=== PATIENT | female | born 2000 | race Caucasian/White ===

== ENCOUNTER → 2019-10-13 09:06 | Outpatient (CLI) | payer BC, MEDICAID ==
[~2019-10-13] VITALS: Ht 162.6 cm; Wt 79.5 kg
[~2019-10-13 09:06] MED LIST: CELEXA10 MG PO; HYDROCODON-ACE1 EAC2 PO; PRENAVITE1 TAB PO
[2019-10-13 09:14] VITALS: Ht 162.6 cm; Wt 79.5 kg
[2019-10-13 11:50] VITALS: BP 108/63
== END | disposition home or self-care (01) ==
LOC: EDSEX 09:06 → D.ER 09:06 → D.LDO 09:06 → EDSTATUS 12:09
PROVIDERS: ATTEND Obstetrics & Gynecology
DX: O26.899 Other specified pregnancy related conditions, unspecified trimester (principal); Z3A.00 Weeks of gestation of pregnancy not specified; V89.2XXA Person injured in unspecified motor-vehicle accident, traffic, initial encounter; Y93.9 Activity, unspecified; Y92.9 Unspecified place or not applicable